=== PATIENT | male | born 1995 | race Caucasian/White ===

== ENCOUNTER → 2017-09-09 | Outpatient (CLI) | payer OTHER ==
--- NOTE | 2017-09-09 15:06 | ECHOCARDIOGRAM REPORT ---
*NOTICE TO RECEIVING [employer] This information is strictly Confidential and protected under [place] law. [place] law prohibits you from making any further disclosure of this information unless further disclosure is expressly permitted by the written consent of the person to whom it pertains or is authorized by law. A general authorization for the release of medical or other information is not sufficient for this purpose. Hospital accepts no responsibility if the information is made available to any other person, INCLUDING THE PATIENT. Interpretation Summary * Name: JUNAID TATUM Study Date: 09/09/2017 12:50 PM BP: 100/60 mmHg * Patient Location: [facility] HR: 57 * : 1995 (M/d/yyyy) Gender: Male Height: 69 in * Age: 22 yrs Ethnicity: [place] Weight: 175 lb * Ordering Physician: Juanpablo Barragan * Referring Physician: Juanpablo Barragan * Performed By: Isidra Mahan RDCS * * Reason For Study: PALPITATIONS * BSA: 2.0 m2 * -- Conclusions -- * 1. Normal left ventricular size and systolic function. EF 55-60%. No regional wall motion abnormalities. No left ventricular hypertrophy. No significant diastolic dysfunction. * 2. Mildly dilated right ventricle with normal systolic function. * 3. No significant valvular abnormalities visualized. * 4. Normal estimated right ventricular systolic pressure. * 5. No prior study available for comparison. Procedure Details * A complete two-dimensional transthoracic echocardiogram was performed (2D, M-mode, Doppler and color flow Doppler). Left Ventricle * Normal left ventricular size and systolic function. EF 55-60%. No regional wall motion abnormalities. No left ventricular hypertrophy. No significant diastolic dysfunction. Right Ventricle * Mildly dilated right ventricle with normal systolic function. * The right ventricular systolic function is normal as assessed by tricuspid annular plane systolic excursion (TAPSE) (normal >1.5 cm). Atria * The left atrial size is normal. * Right atrial size is normal. * No visualized ASD, but cannot rule out. Mitral Valve * The mitral valve leaflets appear normal. There is no evidence of stenosis, fluttering, or prolapse. * There is trace mitral regurgitation. Tricuspid Valve * The tricuspid valve is not well visualized, but is grossly normal. * There is no tricuspid stenosis. * There is mild tricuspid regurgitation. Aortic Valve * The aortic valve is trileaflet. * No hemodynamically significant valvular aortic stenosis. * There is no significant aortic regurgitation. Pulmonic Valve * The pulmonary valve is inadequately visualized, but the Doppler data is adequate for interpretation. * There is no pulmonic valvular stenosis. * Mild pulmonic valvular regurgitation. Great Vessels * The aortic root is normal size. * Ascending aorta of normal dimension Pericardium/Pleural * There is no pericardial effusion. Great Vessels * Normal IVC size with reduced inspiratory collapse. MMode 2D Measurements and Calculations IVSd 0.80 cm IVSs 1.1 cm LVIDd 5.2 cm LVIDs 3.5 cm LVPWd 0.90 cm LVPWs 1.3 cm IVS/LVPW 0.90 FS 32.2 % EDV(Teich) 128.8 ml ESV(Teich) 51.5 ml EF(Teich) 60.0 % EDV(cubed) 139.6 ml ESV(cubed) 43.5 ml EF(cubed) 68.8 % % IVS thick 38.1 % % LVPW thick 46.3 % LV mass(C)d 156.5 grams LV mass(C)dI 80.2 grams/m\S\2 LV mass(C)s 138.9 grams LV mass(C)sI 71.2 grams/m\S\2 SV(Teich) 77.3 ml SI(Teich) 39.6 ml/m\S\2 SV(cubed) 96.1 ml SI(cubed) 49.2 ml/m\S\2 Ao root diam 3.1 cm Ao root area 7.8 cm\S\2 LA dimension 3.3 cm asc Aorta Diam 2.6 cm LA/Ao 1.1 LVAd ap4 35.7 cm\S\2 LVLd ap4 9.2 cm EDV(MOD-sp4) 117.9 ml EDV(sp4-el) 118.4 ml LVAs ap4 21.4 cm\S\2 LVLs ap4 7.4 cm ESV(MOD-sp4) 53.0 ml ESV(sp4-el) 52.1 ml EF(MOD-sp4) 55.0 % EF(sp4-el) 56.0 % LVAd ap2 37.9 cm\S\2 LVLd ap2 9.4 cm EDV(MOD-sp2) 130.5 ml EDV(sp2-el) 129.3 ml LVAs ap2 22.5 cm\S\2 LVLs ap2 8.0 cm ESV(MOD-sp2) 52.4 ml ESV(sp2-el) 53.5 ml EF(MOD-sp2) 59.8 % EF(sp2-el) 58.6 % LVLd %diff 1.8 % EDV(MOD-bp) 127.6 ml LVLs %diff 7.4 % ESV(MOD-bp) 53.7 ml EF(MOD-bp) 57.9 % SV(MOD-sp4) 64.9 ml SI(MOD-sp4) 33.2 ml/m\S\2 SV(MOD-sp2) 78.1 ml SI(MOD-sp2) 40.0 ml/m\S\2 SV(MOD-bp) 74.0 ml SI(MOD-bp) 37.9 ml/m\S\2 SV(sp4-el) 66.3 ml SI(sp4-el) 34.0 ml/m\S\2 SV(sp2-el) 75.8 ml SI(sp2-el) 38.8 ml/m\S\2 Doppler Measurements and Calculations MV E max andrea 99.8 cm/sec MV A max andrea 39.9 cm/sec MV E/A 2.5 MV dec time 0.23 sec Ao V2 max 125.2 cm/sec Ao max PG 6.3 mmHg Ao max PG (full) 1.6 mmHg LV V1 max PG 4.7 mmHg LV V1 max 107.8 cm/sec TR max andrea 246.8 cm/sec RVSP(TR) 32.4 mmHg RAP systole 8.0 mmHg
== END | disposition home or self-care (01) ==
LOC: C.CPL 12:40
PROVIDERS: ATTEND Family Medicine
DX: R00.2 Palpitations (principal); R07.9 Chest pain, unspecified